=== PATIENT | male | born 1970 | race Two or more races ===

== ENCOUNTER 2024-04-22 16:32 | Emergency (ER) | payer MEDICAID, SELFPAY ==
[2024-04-22 16:38] VITALS: BP 156/83; PULSE 73; RESP 19; TEMP 36.6; O2SAT 99; BMI 27.3
--- NOTE | 2024-04-22 18:32 | XR_ITS ---
Examination: Abdomen sonogram, Limited Date and time of exam: April 22, 2024 2018 hrs. Indications: Right upper abdominal pain beginning 4 days ago Technique: Real-time orellana scale transabdominal sonographic images of the upper abdomen obtained. Findings: Gallbladder sludge balls the largest 6 mm Gallbladder wall is irregular 0.3 cm Common bile duct 0.3 cm Pancreatic head 2.6 cm Liver 14 cm fatty liver Normal hepatopedal portal venous flow Patent IVC Impression: Gallbladder sludge balls versus polyps Negative for cholelithiasis, negative for cholecystitis
--- NOTE | 2024-04-22 18:34 | PD.EDRME ---
Rapid Medical Screening Exam [facility] Arrival date/time: 04/22/24 16:32 54M with no significant PMH presents to ED with 4 days of RUQ pain, not leg pain as said in triage. Chief Complaint: Extremity Injury, Lower Vital signs: Vital Signs Temperature 97.8 F 04/22/24 16:38 Pulse Rate 73 04/22/24 16:38 Respiratory Rate 19 04/22/24 16:38 Blood Pressure 156/83 H 04/22/24 16:38 Pulse Oximetry (%) 99 04/22/24 16:38 Oxygen Delivery Method Room Air 04/22/24 16:38
[2024-04-22 18:51] LABS: Basophils # (Auto) 0.1 Thou/mm3 (0.0-0.2); Basophils % (Auto) 1 % (0-2.5); Eosinophils # (Auto) 1.1 Thou/mm3 (0.0-0.5); Eosinophils % (Auto) 18 % (0-10); Hematocrit 39.5 % (41.0-53.0); Hemoglobin 13.7 g/dL (13.5-16.0); Immature Granulocytes % (Auto) 0 % (0-0); Immature Granulocytes Auto 0.01 Thou/mm3 (0.00-0.00); Lymphocytes # (Auto) 1.8 Thou/mm3 (1.0-4.8); Lymphocytes % (Auto) 30 % (10-50); Mean Corpuscular HGB Conc 34.7 g/dl (31.0-37.0); Mean Corpuscular Hemoglobin 30.2 pg (25.0-35.0); Mean Corpuscular Volume 87 fL (80-100); Monocytes # (Auto) 0.4 Thou/mm3 (0.0-0.8); Monocytes % (Auto) 6 % (0-12); Neutrophils # (Auto) 2.8 Thou/mm3 (1.8-7.7); Neutrophils % (Auto) 46 % (37-80); Nucleated Red Blood Cell % 0 /100 WBC (0); Platelet Count 202 Thou/mm3 (140-440); RDW Standard Deviation 38.5 fL (35.1-43.9); Red Blood Count 4.54 Miln/mm3 (4.50-5.90); White Blood Count 6.1 Thou/mm3 (3.8-10.6)
[2024-04-22 19:05] LABS: Alanine Aminotransferase 16 U/L (10-49); Albumin, Serum 4.6 gm/dL (3.5-5.0); Albumin/Globulin Ratio 1.6 (1.2-2.2); Alkaline Phosphatase 100 U/L (46-116); Anion Gap 4 (7-16); Aspartate Amino Transferase 13 U/L (0-34); BUN/Creatinine Ratio 20 Ratio (12-20); Bilirubin,Total 0.6 mg/dL (0.3-1.2); Blood Urea Nitrogen 18 mg/dL (9-23); Calcium 9.7 mg/dL (8.3-10.6); Calcium (Corrected) 9.7 mg/dL (8.5-10.1); Carbon Dioxide 27.6 mMol/L (20.0-31.0); Chloride 103 mMol/L (98-107); Creatinine (Component) 0.9 mg/dL (0.6-1.3); Estimated Creatinine Clearance 88.7 mL/min (>60); Globulin 2.8 gm/dL (2.3-3.5); Glucose 279 mg/dL (74-106); Lipase 29 U/L (12-53); Osmolality,Calculated 282 (275-295); Potassium 4.8 mMol/L (3.4-5.1); Sodium 135 mMol/L (136-145); Total Protein 7.4 gm/dL (5.7-8.2); eGFR > 60 See Note
[2024-04-22] MEDS: HYDROcodone/APAP 5/325 TABLET 1 TAB PO (19:37)
[2024-04-22 20:05] LABS: Collection Type, Urine Clean Catch; RBC,Urine 0 /hpf (0-3); WBC,Urine 0 /hpf (0-5)
[2024-04-22 20:31] LABS: Bilirubin,Urine Negative (Negative); Blood,Urine Negative (Negative); Clarity,Urine Clear (Clear/Hazy); Color,Urine Lt-Yellow (Lt Yel-Yel); Culture Indicated,Urine Not Indicated; Glucose, Urine 4+ (Negative); Ketones,Urine Negative (Negative); Leukocyte Esterase,Urine Negative (Negative); Nitrite,Urine Negative (Negative); Protein,Urine Negative (Neg - Trace); Specific Gravity,Urine 1.034 (1.001-1.035); Squamous Epithelial Cell,Urine < 1 /hpf (0-5); Urobilinogen,Urine Negative mg/dL (0.0-1.0)
[2024-04-22 20:40] LABS: Amphetamine/Methamp Scrn,U Negative (Negative); Barbiturate Screen,Urine Negative (Negative); Benzodiazepines Screen,Urine Negative (Negative); Benzoylecgonine Screen, Ur Negative (Negative); Fentanyl Screen,Urine Negative (Negative); Opiate Screen,Urine Negative (Negative); THC Screen,Urine Negative (Negative)
[2024-04-22 23:09] VITALS: BP 149/84; PULSE 66; RESP 16; TEMP 36.5; O2SAT 97
--- NOTE | 2024-04-22 23:55 | PD.EDLOWEX ---
Lower Extremity Injury RME/HPI General Chief Complaint: Extremity Injury, Lower Stated Complaint: RIGHT LEG PAIN X4 DAYS Time Seen by Provider: 04/22/24 18:36 Arrival date/time: 04/22/24 16:32 Limitations: no limitations RME / HPI RME / HPI Narrative: 04/22/24 16:32 54M with no significant PMH presents to ED with 4 days of RUQ pain, not leg pain as said in triage. ---- Dr. Hurley's Main ED Evaluation: 54-year-old male with no significant past medical history coming in with intermittent right upper quadrant pain with radiation to his right back. x 4 days. The pain is intermittent and he cannot tell what makes it better or worse. He states he ate this morning but then the pain came back. No shortness of breath. No diaphoresis. Patient has not taken any medications for it. Patient does not recall having similar symptoms in the past. Patient states that the last few days when he eats Munuza and/or beef stew. He will get the pain. When he does not eat that type of food it makes it better. No nausea vomiting or diarrhea. No fevers. Patient otherwise denies sick contacts. No cough. Related Data Previous Rx's ?Medication ?Instructions ?Recorded hydrocodone 5 mg-acetaminophen 325 1 tab PO Q6H PRN pain #10 tabs 11/21/17 mg tablet (Minco) ibuprofen 600 mg tablet 600 mg PO Q6H #60 tabs 11/21/17 magnesium citrate (Citroma oral 150 ml PO QDAY #296 mL 06/29/21 solution) ciprofloxacin HCl 500 mg tablet 500 mg PO BID #14 tabs 08/02/23 (Cipro) doxycycline monohydrate 100 mg 100 mg PO QDAY #14 caps 12/10/23 capsule Allergies Allergy/AdvReac Type Severity Reaction Status Date / Time No Known Allergies Allergy Unverified 04/22/24 16:35 Review of Systems Review of Systems Systems Reviewed: All systems reviewed, normal except as documented Past Medical History Past Medical History CARDIAC: Positive Hypertension; Negative Cardiac Disorders or Congestive Heart Failure RESPIRATORY: Negative Chronic Obstructive Pulmonary Disease (COPD) or Asthma GENITOURINARY: Negative Renal Disease ENDOCRINE: Positive Diabetes Mellitus Type 2; Negative Diabetes Mellitus Type 1 HEMATOLOGIC: Negative Sickle Cell Disease Social History SMOKING STATUS: Never smoker ED Exam General Limitations: Present no limitations General appearance: Present alert and in no apparent distress Head Head exam: Present atraumatic Eye Eye exam: Present normal appearance, PERRL and EOMI ENT ENT exam: Present normal exam, normal oropharynx and mucous membranes moist Neck Neck exam: Present normal inspection, full ROM and trachea midline Chest Chest inspection: Present normal inspection and symmetric chest wall rise Respiratory Respiratory exam: Present normal lung sounds bilaterally Cardiovascular Cardiovascular exam: Present regular rate, normal rhythm and normal heart sounds Abdominal Exam Abdominal exam: Present soft and normal bowel sounds Extremities Exam Extremities exam: Present normal inspection and full ROM Back Exam Back exam: Present normal inspection and full ROM Neurological Exam Neurological exam: Present alert, oriented X3 and CN II-XII intact Psychiatric Psychiatric exam: Present normal affect and normal mood Skin Skin exam: Present warm, dry, intact and normal color Course Quality Measures none Orders Category Date Time Status US gall bladder Stat Exams 04/22/24 18:32 Completed CBC Stat Lab 04/22/24 18:41 Completed CMP [Comprehensive Metabolic Panel] Stat Lab 04/22/24 18:41 Completed Drug Screen,Urine Stat Lab 04/22/24 19:57 Completed Lipase Stat Lab 04/22/24 18:41 Completed Urinalysis, C/S if Indicated Stat Lab 04/22/24 19:57 Completed HYDROcodone*/APAP 5/325 [Minco 5/325] Med 04/22/24 19:06 Discontinued 1 tab PO X1 ONE HYDROcodone*/APAP 5/325 [Minco 5/325] Med 04/23/24 00:02 Discontinued 1 tab PO X1 ONE Vital Signs Vital signs: Vital Signs Temperature 97.8 F 04/22/24 16:38 Pulse Rate 73 04/22/24 16:38 Respiratory Rate 19 04/22/24 16:38 Blood Pressure 156/83 H 04/22/24 16:38 Pulse Oximetry (%) 99 04/22/24 16:38 Oxygen Delivery Method Room Air 04/22/24 16:38 Pulse ox is 99% on room air, which is normal according to my interpretation. Extremity Injury, Lower MDM Narrative MDM Narrative:: Differential diagnosis includes gallbladder disease, sludge, acute cholecystitis, Patient data External records reviewed:: [facility] previous records (Per chart review, patient was seen here on 12/09/22 for epididymitis.) Clinical information provided by:: patient Social determinants that could affect healthcare access:: none Patient has the following chronic illnesses:: HTN, DM How is presenting disease/condition affected by chronic disease/condition?: uneffected by Evaluation data The following diagnostics were reviewed and interpreted by me:: lab results and radiology exam(s) Lab and/or radiology exams considered but not ordered:: none Interpretation Summary: CBC is normal, Glucose is elevated at 279, LFTs are normal, Total Bilirubin is normal, UA is unremarkable, UDS is negative, according to my interpretation. ---- I have personally reviewed the radiology data and agree with the radiologist's interpretation below: [facility] Report Signed Patient: AZALE ZARCO. Record#: [id number] Birthdate: 1970 Age/Sex: 54 / M Location: [facility] Attending Dr: Ordering Physician: Kunal Grey PA-C Date of Service: 04/22/24 Procedure(s): US gall bladder Accession Number(s): [id number] cc: Jan Case PA-C; Shlomo Mahoney MD; Kunal Grey PA-C~ Examination: Abdomen sonogram, Limited Date and time of exam: April 22, 2024 2018 hrs. Indications: Right upper abdominal pain beginning 4 days ago Technique: Real-time orellana scale transabdominal sonographic images of the upper abdomen obtained. Findings: Gallbladder sludge balls the largest 6 mm Gallbladder wall is irregular 0.3 cm Common bile duct 0.3 cm Pancreatic head 2.6 cm Liver 14 cm fatty liver Normal hepatopedal portal venous flow Patent IVC Impression: Gallbladder sludge balls versus polyps Negative for cholelithiasis, negative for cholecystitis Dictated By: Shlomo Mahoney MD Signed By: <Electronically signed by Shlomo Mahoney MD in OV> 04/22/24 4636 Medications / Prescriptions Medications or Prescriptions considered but not ordered:: none Medication administrations:: Medication Administration History Discontinued Medications Hydrocodone Bitart/Acetaminophen (Hydrocodone/Apap 5/325 Tablet) 1 tab PO X1 ONE Stop: 04/22/24 19:07 Last Admin: 04/22/24 19:37 Dose: 1 tab Documented By: Hydrocodone Bitart/Acetaminophen (Hydrocodone/Apap 5/325 Tablet) 1 tab PO X1 ONE Stop: 04/23/24 00:03 Last Admin: 04/23/24 00:12 Dose: 1 tab Documented By: SF see above Consultations Consultation(s) initiated? (list below): No Diagnosis Extremity Injury, Lower Differential Diagnosis: other (gallbladder disease, gallbladder sludge, acute cholecystitis) Most likely diagnosis given after review of the tests above:: see bwlo Admission Indicated Admission indicated?: not indicated Admission Request Was there a request for admission?: No Disposition Plan Disposition Plan: Discharge Discharge Attestation Discharge Attestation: The patient and all family members were given an opportunity to ask questions and understood the discharge instructions. Discharge instructions specifically effects, indications for sooner follow up or return to the emergency department, and the expected course of current diagnosis. Patient condition: Stable Discharge Plan Plan Patient Disposition: Admit Acute Care w/in Hospital Patient condition on transfer: Stable Prescriptions/Referrals Prescriptions/Med Rec: No Action hydrocodone-acetaminophen [Minco] 5-325 mg tablet 1 tab PO Q6H MDD 4 tabs PRN (Reason: pain) Qty: 10 0RF ibuprofen 600 mg tablet 600 mg PO Q6H Qty: 60 0RF magnesium citrate [Citroma] Solution 150 ml PO QDAY Qty: 296 0RF ciprofloxacin HCl [Cipro] 500 mg tablet 500 mg PO BID Qty: 14 0RF doxycycline monohydrate 100 mg capsule 100 mg PO QDAY Qty: 14 0RF Referrals: Katerina Hammond MD [Physician] - In 1 week (Follow-up with your primary care so you get a referral with Dr. Hammond.) Jan Case PA-C [Primary Care Provider] - In 1 week Problem List Clinical Impression: Gallbladder sludge Patient/Caregiver Discharge Instructions Diet Instructions: Stay hydrated with Pedialyte and Gatorade. Stay away from greasy or fatty foods. Additional Instructions: Return to the emergency department for any worsening symptoms or any other concerns. You will need to get follow-up with your primary care physician to get a referral to see surgery. Print Language: Omani Stand Alone Forms: Sussy Award Info., Patient Portal Info Letter
[2024-04-23] MEDS: HYDROcodone/APAP 5/325 TABLET 1 TAB PO (00:12)
== END 2024-04-23 00:18 | disposition home or self-care (01) ==
PROVIDERS: Physician Assistant; Emergency Provider Emergency Medicine; PCP Physician Assistant
DX: K82.8 Other specified diseases of gallbladder (principal)
CPT/HCPCS: 36415; 76705; 80053; 80307; 81001; 83690; 85025; 99284; A9270

== ENCOUNTER 2024-05-01 10:40 | Day surgery (SDC) | payer MEDICAID, SELFPAY ==
--- NOTE | 2024-04-30 07:00 | EKG_ITS ---
[facility] Test Date: 2024-04-30 Pat Name: AZAEL ZARCO Department: Room: - Gender: Male [employer] G[employer]r: TAM : 1970 Requested By: Jim Muñoz Order Number: [id number] Reading MD: Jim Muñoz Measurements Intervals [place] Rate: 61 P: 23 DC: 191 QRS: 25 QRSD: 90 T: 44 QT: 383 QTc: 388 Interpretive Statements SINUS RHYTHM No previous ECG available for comparison /store/S0/[id number]/ecg/[id number].pdf
[2024-04-30 07:17] VITALS: BMI 31.0
[2024-04-30 07:43] LABS: Collection Type, Urine Clean Catch
[2024-04-30 08:15] LABS: Basophils # (Auto) 0.1 Thou/mm3 (0.0-0.2); Basophils % (Auto) 1 % (0-2.5); Eosinophils # (Auto) 1.1 Thou/mm3 (0.0-0.5); Eosinophils % (Auto) 23 % (0-10); Hematocrit 38.1 % (41.0-53.0); Hemoglobin 13.2 g/dL (13.5-16.0); Immature Granulocytes % (Auto) 0 % (0-0); Immature Granulocytes Auto 0.01 Thou/mm3 (0.00-0.00); Lymphocytes # (Auto) 1.5 Thou/mm3 (1.0-4.8); Lymphocytes % (Auto) 31 % (10-50); Mean Corpuscular HGB Conc 34.6 g/dl (31.0-37.0); Mean Corpuscular Hemoglobin 30.2 pg (25.0-35.0); Mean Corpuscular Volume 87 fL (80-100); Monocytes # (Auto) 0.4 Thou/mm3 (0.0-0.8); Monocytes % (Auto) 8 % (0-12); Neutrophils # (Auto) 1.8 Thou/mm3 (1.8-7.7); Neutrophils % (Auto) 37 % (37-80); Nucleated Red Blood Cell % 0 /100 WBC (0); Platelet Count 214 Thou/mm3 (140-440); RDW Standard Deviation 38.9 fL (35.1-43.9); Red Blood Count 4.37 Miln/mm3 (4.50-5.90); White Blood Count 4.9 Thou/mm3 (3.8-10.6)
[2024-04-30 08:16] LABS: Bilirubin,Urine Negative (Negative); Blood,Urine Negative (Negative); Clarity,Urine Clear (Clear/Hazy); Color,Urine Lt-Yellow (Lt Yel-Yel); Glucose, Urine 1+ (Negative); Ketones,Urine Negative (Negative); Leukocyte Esterase,Urine Negative (Negative); Nitrite,Urine Negative (Negative); Protein,Urine Negative (Neg - Trace); RBC,Urine 2 /hpf (0-3); Specific Gravity,Urine 1.015 (1.001-1.035); Squamous Epithelial Cell,Urine < 1 /hpf (0-5); Urobilinogen,Urine Negative mg/dL (0.0-1.0); WBC,Urine 1 /hpf (0-5)
[2024-04-30 08:29] LABS: Alanine Aminotransferase 13 U/L (10-49); Albumin, Serum 4.4 gm/dL (3.5-5.0); Albumin/Globulin Ratio 1.8 (1.2-2.2); Alkaline Phosphatase 66 U/L (46-116); Anion Gap 4 (7-16); Aspartate Amino Transferase 12 U/L (0-34); BUN/Creatinine Ratio 21 Ratio (12-20); Bilirubin,Total 0.6 mg/dL (0.3-1.2); Blood Urea Nitrogen 17 mg/dL (9-23); Calcium 9.5 mg/dL (8.3-10.6); Calcium (Corrected) 9.5 mg/dL (8.5-10.1); Carbon Dioxide 26.4 mMol/L (20.0-31.0); Chloride 107 mMol/L (98-107); Creatinine (Component) 0.8 mg/dL (0.6-1.3); Estimated Creatinine Clearance 110.2 mL/min (>60); Globulin 2.5 gm/dL (2.3-3.5); Glucose 141 mg/dL (74-106); Osmolality,Calculated 277 (275-295); Potassium 4.6 mMol/L (3.4-5.1); Sodium 137 mMol/L (136-145); Total Protein 6.9 gm/dL (5.7-8.2); eGFR > 60 See Note
--- NOTE | 2024-04-30 11:48 | ESHP_ITS ---
RE: AZAEL OCHOA : 1970 DATE OF ADMISSION: 04/30/2024 HISTORY OF PRESENT ILLNESS: A 54-year-old gentleman who was referred to me with history of phimosis. He has been urinating slow and hard to urinate. He had eye surgery in the past. His PSA is 0.5. PAST MEDICAL HISTORY: He has a history of diabetes mellitus. MEDICATIONS: He takes: 1. Insulin. 2. Lisinopril. 3. Keflex. 4. Doxazosin. ALLERGIES: NONE KNOWN. SOCIAL HISTORY: He has 6 children. PHYSICAL EXAMINATION: HEENT: Normal. NECK: Supple. LUNGS: Clear. CARDIOVASCULAR: Heart sounds are normal. ABDOMEN: Soft without any organomegaly. No guarding. No rigidity. EXTREMITIES: Normal. GENITOURINARY: Phallus reveals moderate phimosis. Testes are down in scrotum. IMPRESSION: Phimosis. PLAN: Circumcision. Planned procedure, risks and complications have been discussed with the patient. The patient has understood them and agreed to proceed. DT: 10:49:50 TT: 11:47:00 Ref: [id number] - TID: [id number]
[2024-05-01] VITALS (8 sets, daily range): BP systolic 95–147; BP diastolic 60–84; PULSE 64–84; RESP 12–18; TEMP 36.2–36.5; O2SAT 95–98; BMI 30.2
--- NOTE | 2024-05-01 12:56 | SUR.PHASEI ---
pt received from OR in recovery bay 6. pt asleep but responds to voice, breathing unlabored nc 6l. v/s stable. pt dressing to penis area cdi. report received from Mp MAGALLON and Korey BURGER.
--- NOTE | 2024-05-01 14:11 | SUR.PHASEII ---
pt awake and alert, breathing unlabored on room air. v/s stable. pt dressing to penis area cdi. pt able to ambulate to wheelchair with steady gait. d/c instructions given with in room, using change management consultant Nayeli ALLEN, all questions answered. pt d/c via wheelchair with all belongings.
--- NOTE | 2024-05-01 15:58 | ESOP_ITS ---
RE: AZAEL OCHOA : 1970 DATE OF OPERATION: 05/01/2024 PREOPERATIVE DIAGNOSIS: Tight phimosis. The patient has history of diabetes mellitus. POSTOPERATIVE DIAGNOSIS: Tight phimosis, the patient has history of diabetes mellitus. PROCEDURE PERFORMED: Circumcision. ANESTHESIA: General. INDICATION: The patient is a 54-year-old male with tight phimosis. He was now scheduled to have circumcision. Planned procedure, risks and complications have been discussed with the patient. The patient understood them and agreed to proceed. DESCRIPTION OF PROCEDURE: After the patient was brought to the operating table under adequate general anesthesia in supine position, parts were prepped and draped in the usual fashion. Circumcision was then carried out in a standard fashion by excising the foreskin in the circumferential manner at the level of calloway glandis. Complete hemostasis was obtained by using electrocoagulation. Skin was reapproximated back by placing interrupted sutures of 3-0 chromic catgut. Sterile dressing was then applied. Local anesthetic was injected at the base of the penis. The patient was then transferred to the recovery room in a satisfactory condition, having tolerated the entire procedure well. Sponge count and needle count at the end of the procedure was found to be correct. Estimated blood loss was approximately 5 mL. DT: 14:18:53 TT: 15:56:00 Ref: [id number] - TID: [id number]
== END 2024-05-01 14:11 | disposition home or self-care (01) ==
LOC: S2EX 14:31
PROVIDERS: Anesthesiology; PCP Physician Assistant; Referring Provider Surgery; Visit Provider Surgery
PROC: (CPT 54161; principal; 2024-05-01 12:45)
DX: N47.1 Phimosis (principal); E11.9 Type 2 diabetes mellitus without complications; Z01.810 Encounter for preprocedural cardiovascular examination
CPT/HCPCS: 54161; 36415; 80053; 81001; 85025; 93005; A4649; J0690; J2250; J2704; J3010; J3490; A9270; J1596

== ENCOUNTER 2024-07-02 17:01 | Emergency (ER) | payer MEDICAID, SELFPAY ==
[2024-07-02 17:32] VITALS: BP 134/79; PULSE 92; RESP 20; TEMP 37.1; O2SAT 95
--- NOTE | 2024-07-02 17:34 | XR_ITS ---
Examination: PA lateral chest 2 views TECHNIQUE: Upright PA lateral chest 2 views Exam date and time: July 02, 2024 1803 hours Comparison November 21, 2017 INDICATIONS: Coughing fever headache weakness chest pain beginning 2 days ago. FINDINGS: Minimal prominence left ventricle No pneumonia or pulmonary edema Moderate thoracic spondylosis IMPRESSION: No pneumonia or pulmonary edema
--- NOTE | 2024-07-02 17:34 | PD.EDRME ---
Rapid Medical Screening Exam [facility] Arrival date/time: 07/02/24 17:01 54-year-old male presents to the emergency department today complaints of cough, congestion, body aches ongoing x 1 day Chief Complaint: Flu Like Symptoms Time Seen by Provider: 07/02/24 17:32 Vital signs: Vital Signs Temperature 98.8 F 07/02/24 17:32 Pulse Rate 92 07/02/24 17:32 Respiratory Rate 20 07/02/24 17:32 Blood Pressure 134/79 H 07/02/24 17:32 Pulse Oximetry (%) 95 07/02/24 17:32 Oxygen Delivery Method Room Air 07/02/24 17:32
--- NOTE | 2024-07-02 18:53 | PD.EDURI ---
Upper Respiratory Inf. RME/HPI General Chief Complaint: Flu Like Symptoms Stated Complaint: FEVER, COUGH, [place], WEAKNESS, CHEST PAIN Time Seen by Provider: 07/02/24 17:32 Source: patient and family Arrival date/time: 07/02/24 17:01 54-year-old male presents emerged see department complaining of fever, cough, headache, generalized bodyaches, weakness and chest pain when coughing for 3 days. Patient reports sick contacts daughters at home have similar symptoms. Mode of arrival: ambulatory Limitations: no limitations RME / HPI RME / HPI Narrative: 07/02/24 17:01 54-year-old male presents to the emergency department today complaints of cough, congestion, body aches ongoing x 1 day Related Data Home Medications ?Medication ?Instructions ?Recorded ?Confirmed finasteride 5 mg tablet 5 mg PO QDAY 04/30/24 04/30/24 insulin glargine 100 unit/mL 25 unit subcut QPM 04/30/24 04/30/24 subcutaneous solution (Lantus U-100 Insulin) lisinopril 10 mg tablet 10 mg PO QDAY 04/30/24 05/01/24 tamsulosin 0.4 mg capsule 0.4 mg PO BID 04/30/24 04/30/24 Previous Rx's ?Medication ?Instructions ?Recorded ciprofloxacin HCl 500 mg tablet 500 mg PO BID #14 tabs 05/01/24 (Cipro) hydrocodone 5 mg-acetaminophen 325 1 tab PO Q6H PRN pain #30 tabs 05/01/24 mg tablet acetaminophen 500 mg capsule 500 mg PO Q6H PRN pain #30 caps 07/02/24 ibuprofen 600 mg tablet 600 mg PO Q8H PRN pain #20 tabs 07/02/24 Allergies Allergy/AdvReac Type Severity Reaction Status Date / Time No Known Allergies Allergy Verified 05/01/24 11:27 Review of Systems Review of Systems Systems Reviewed: All systems reviewed, normal except as documented Constitutional Constitutional: Reports system reviewed and no additional complaints, except as documented, Reports body ache(s), Denies chills, Reports fever(s), Reports headache(s) and Reports weakness Eyes Eyes: Reports system reviewed and no additional complaints, except as documented and Denies change in vision ENT Ears, Nose, Mouth, and Throat: Reports system reviewed and no additional complaints, except as documented, Denies disequilibrium, Denies dizziness, Reports headache(s), Denies sore throat and Denies vertigo Cardiovascular Cardiovascular: Reports system reviewed and no additional complaints, except as documented, Reports chest pain and Denies dyspnea Respiratory Respiratory: Reports system reviewed and no additional complaints, except as documented, Denies chest congestion, Reports cough and Denies dyspnea Gastrointestinal Gastrointestinal: Reports system reviewed and no additional complaints, except as documented, Denies abdominal pain, Denies nausea and Denies vomiting Musculoskeletal Musculoskeletal: Reports system reviewed and no additional complaints, except as documented, Denies abnormal gait and Denies arthralgias Integumentary/Breasts Skin/Breast: Reports system reviewed and no additional complaints, except as documented, Denies erythema, Denies rash and Denies wounds Neurologic Neurologic: Reports system reviewed and no additional complaints, except as documented, Denies abnormal gait, Denies disequilibrium, Denies dizziness, Reports headache(s), Denies vertigo and Reports weakness Past Medical History Past Medical History NEUROLOGIC: Negative Neurological Disorders or Seizures CARDIAC: Positive Cardiac Disorders, Hypercholesterolemia (NO MEDS) and Hypertension; Negative Congestive Heart Failure RESPIRATORY: Negative Chronic Obstructive Pulmonary Disease (COPD) or Asthma GASTROINTESTINAL: Positive Gastrointestinal Disorders, Hepatitis (A- SEVERAL YEARS AGO) and Gall Bladder Disease GENITOURINARY: Positive Genitourinary Disorders and Benign Prostatic Hyperplasia; Negative Renal Disease MUSCULOSKELETAL: Negative Musculoskeletal Disorders ENDOCRINE: Positive Endocrine Disorders and Diabetes Mellitus Type 2; Negative Diabetes Mellitus Type 1 HEMATOLOGIC: Negative Blood Disorders or Sickle Cell Disease OTHER HISTORY: Positive Chicken Pox; Negative Falls, Blood Transfusions, Blood Transfusion Reaction, Anesthesia Reactions, Chemotherapy, Measles, Mumps or Cancer Family History FAMILY HISTORY: Positive Family Cardiac Disorders (MOTHER- HTN); Negative Family Anesthesia Reaction Surgical History SURGICAL: Positive Eye Surgery (RIGHTEYE- PTYREGIUM) Social History SMOKING STATUS: Never smoker ED Exam General Limitations: Present no limitations General appearance: Present alert and in no apparent distress Head Head exam: Present atraumatic Eye Eye exam: Present normal appearance, PERRL and EOMI ENT ENT exam: Present normal exam, normal oropharynx and mucous membranes moist Neck Neck exam: Present normal inspection, full ROM and trachea midline Chest Chest inspection: Present normal inspection and symmetric chest wall rise Respiratory Respiratory exam: Present normal lung sounds bilaterally Cardiovascular Cardiovascular exam: Present regular rate, normal rhythm and normal heart sounds Abdominal Exam Abdominal exam: Present soft and normal bowel sounds Extremities Exam Extremities exam: Present normal inspection and full ROM Back Exam Back exam: Present normal inspection and full ROM Neurological Exam Neurological exam: Present alert, oriented X3 and CN II-XII intact Psychiatric Psychiatric exam: Present normal affect and normal mood Skin Skin exam: Present warm, dry, intact and normal color Course Quality Measures none Orders Category Date Time Status Bedside Influenza A&B Antigen Test NOW Care 07/02/24 17:34 Completed XR chest 2V Stat Exams 07/02/24 17:34 Completed Ketorolac Inj [Toradol Inj] Med 07/02/24 18:56 Once 30 mg IM X1 ONE Vital Signs Vital signs: Vital Signs Temperature 98.8 F 07/02/24 17:32 Pulse Rate 92 07/02/24 17:32 Respiratory Rate 20 07/02/24 17:32 Blood Pressure 134/79 H 07/02/24 17:32 Pulse Oximetry (%) 95 07/02/24 17:32 Oxygen Delivery Method Room Air 07/02/24 17:32 95% room air within normal limits Upper Respiratory Infection MDM Narrative MDM Narrative:: 54-year-old male presents emerged see department complaining of fever, cough, headache, generalized bodyaches, weakness and chest pain when coughing for 3 days. Patient reports sick contacts daughters at home have similar symptoms. Patient appears nontoxic and is hemodynamic stable. No adventitious lung sounds on auscultation. Chest x-ray was unremarkable for any pneumonic infiltrates. Patient has moist mucous membranes and not appear to be in any respiratory distress. Influenza positive. Tamiflu treatment was not considered due to patient having symptoms greater than 48 hours. Patient stable for discharge. Patient data External records reviewed:: [facility] previous records Clinical information provided by:: patient Social determinants that could affect healthcare access:: none Patient has the following chronic illnesses:: See chart How is presenting disease/condition affected by chronic disease/condition?: uneffected by Evaluation data The following diagnostics were reviewed and interpreted by me:: radiology exam(s) Lab and/or radiology exams considered but not ordered:: Ordered Interpretation Summary: Interpreted by me Medications / Prescriptions Medications or Prescriptions considered but not ordered:: Ordered Medication administrations:: Medication Administration History Discontinued Medications Ketorolac Tromethamine (Ketorolac Inj 60 Mg/2 Ml Vial) 30 mg IM X1 ONE Stop: 07/02/24 18:57 Given Consultations Consultation(s) initiated? (list below): No Diagnosis Upper Respiratory Differential Diagnosis: upper respiratory infection, otitis media, sinusitis, viral infection, bronchitis, influenza and pharyngitis Most likely diagnosis given after review of the tests above:: Influenza Admission Indicated Admission indicated?: not indicated Admission Request Was there a request for admission?: No Disposition Plan Disposition Plan: Discharge Discharge Attestation Discharge Attestation: The patient and all family members were given an opportunity to ask questions and understood the discharge instructions. Discharge instructions specifically effects, indications for sooner follow up or return to the emergency department, and the expected course of current diagnosis. Patient condition: Stable Discharge Plan Plan Patient Disposition: HOME (Self Care) Disposition Comment: Stable Prescriptions/Referrals Prescriptions/Med Rec: New acetaminophen 500 mg capsule 500 mg PO Q6H PRN (Reason: pain) Qty: 30 0RF ibuprofen 600 mg tablet 600 mg PO Q8H PRN (Reason: pain) Qty: 20 0RF No Action insulin glargine [Lantus U-100 Insulin] 100 unit/mL Solution 25 unit SUBCUT QPM tamsulosin 0.4 mg Capsule 0.4 mg PO BID lisinopril 10 mg Tablet 10 mg PO QDAY finasteride 5 mg Tablet 5 mg PO QDAY hydrocodone-acetaminophen 5-325 mg tablet 1 tab PO Q6H MDD 4 PRN (Reason: pain) Qty: 30 0RF ciprofloxacin HCl [Cipro] 500 mg tablet 500 mg PO BID Qty: 14 0RF Referrals: Travis Palacios FNP [Primary Care Provider] - In 1 week Problem List Clinical Impression: Influenza Patient/Caregiver Discharge Instructions Education Materials: ED Influenza (Adult) Additional Instructions: Drink plenty of fluids and get plenty of rest. Take Tylenol or ibuprofen as needed for fever or pain. Follow-up with primary care provider in 2 to 3 days. Return to emergency department for any worsening symptoms or as needed. Print Language: Senegalese Stand Alone Forms: Sussy Award Info., Patient Portal Info Letter SEE/TAPPET ADJUSTER Supervising Physician SEE/TAPPET ADJUSTER Supervising Physician: Dr. Arvizu
[2024-07-02] MEDS: KETOROLAC INJ 60 MG/2 ML VIAL 30 MG IM (19:16)
== END 2024-07-02 19:25 | disposition home or self-care (01) ==
PROVIDERS: Emergency Provider Emergency Medicine; PCP Nurse Practitioner Family
DX: J11.1 Influenza due to unidentified influenza virus with other respiratory manifestations (principal)
CPT/HCPCS: 71046; 87400; 96372; 99283; J1885

== ENCOUNTER 2024-10-28 11:52 | Emergency (ER) | payer MEDICAID, SELFPAY ==
[2024-10-28 11:52] VITALS: BMI 28.8
[2024-10-28 12:05] VITALS: BP 146/83; PULSE 74; RESP 16; TEMP 36.4; O2SAT 99
--- NOTE | 2024-10-28 12:10 | PD.EDADULT ---
ED General RME/HPI General Chief complaint: Abdominal Pain Stated complaint: RUQ PAIN X4 DAYS Time Seen by Provider: 10/28/24 11:54 Arrival date/time: 10/28/24 11:52 Limitations: no limitations RME / HPI RME / HPI narrative: DR. RED MAIN ED EVALUATION: 54 year old male with past medical history for diabetes presents to the Emergency Department with complaints of right upper quadrant pain that radiates to the right flank onset intermittently for 4-5 days, today's episode has been going on for an hour. Pain is described as stabbing and rated moderate in severity. No modifying factors reported at this time. Patient had similar symptoms in the past 3-4 months ago and was told he had sand in his gallbladder. No fevers or chills. Related Data Home Medications ?Medication ?Instructions ?Recorded ?Confirmed finasteride 5 mg tablet 5 mg PO QDAY 04/30/24 04/30/24 insulin glargine 100 unit/mL 25 unit subcut QPM 04/30/24 04/30/24 subcutaneous solution (Lantus U-100 Insulin) lisinopril 10 mg tablet 10 mg PO QDAY 04/30/24 05/01/24 tamsulosin 0.4 mg capsule 0.4 mg PO BID 04/30/24 04/30/24 Previous Rx's ?Medication ?Instructions ?Recorded ciprofloxacin HCl 500 mg tablet 500 mg PO BID #14 tabs 05/01/24 (Cipro) hydrocodone 5 mg-acetaminophen 325 1 tab PO Q6H PRN pain #30 tabs 05/01/24 mg tablet acetaminophen 500 mg capsule 500 mg PO Q6H PRN pain #30 caps 07/02/24 ibuprofen 600 mg tablet 600 mg PO Q8H PRN pain #20 tabs 07/02/24 Allergies Allergy/AdvReac Type Severity Reaction Status Date / Time No Known Allergies Allergy Verified 10/28/24 11:52 Review of Systems Review of Systems Systems Reviewed: All systems reviewed, normal except as documented Past Medical History Past Medical History CARDIAC: Positive Cardiac Disorders, Hypercholesterolemia (NO MEDS) and Hypertension GASTROINTESTINAL: Positive Gastrointestinal Disorders, Hepatitis (A- SEVERAL YEARS AGO) and Gall Bladder Disease GENITOURINARY: Positive Genitourinary Disorders and Benign Prostatic Hyperplasia ENDOCRINE: Positive Endocrine Disorders and Diabetes Mellitus Type 2 OTHER HISTORY: Positive Chicken Pox Family History FAMILY HISTORY: Positive Family Cardiac Disorders (MOTHER- HTN) Surgical History SURGICAL: Positive Eye Surgery (RIGHTEYE- PTYREGIUM) Social History SMOKING STATUS: Never smoker SUBSTANCE USE: does not use ALCOHOL: Never ED Exam General Limitations: Present no limitations General appearance: Present alert and in no apparent distress Head Head exam: Present atraumatic, normocephalic and normal inspection Eye Eye exam: Present normal appearance, PERRL and EOMI ENT ENT exam: Present normal exam, normal oropharynx and mucous membranes moist Neck Neck exam: Present normal inspection, full ROM and trachea midline Chest Chest inspection: Present normal inspection and symmetric chest wall rise Respiratory Respiratory exam: Present normal lung sounds bilaterally Cardiovascular Cardiovascular exam: Present regular rate, normal rhythm and normal heart sounds Abdominal Exam Abdominal exam: Present soft and normal bowel sounds Extremities Exam Extremities exam: Present normal inspection and full ROM Back Exam Back exam: Present normal inspection and full ROM Neurological Exam Neurological exam: Present alert, oriented X3 and CN II-XII intact Psychiatric Psychiatric exam: Present normal affect and normal mood Skin Skin exam: Present warm, dry, intact and normal color Course Quality Measures none Orders Category Date Time Status EKG (ED ONLY) *Do not use* NOW Care 10/28/24 12:[address] abdomen pelvis wo con Stat Exams 10/28/24 12:16 Completed EKG (ED Only) Stat Exams 10/28/24 12:16 Ordered CBC Stat Lab 10/28/24 12:50 Completed Comprehensive Metabolic Panel Stat Lab 10/28/24 12:50 Completed Lipase Stat Lab 10/28/24 12:50 Completed Magnesium Stat Lab 10/28/24 12:50 Completed Prothrombin Time with INR Stat Lab 10/28/24 12:50 Completed Urinalysis Stat Lab 10/28/24 12:21 Completed Ketorolac Inj [Toradol Inj] Med 10/28/24 12:16 Discontinued 15 mg IVP X1 ONE Ketorolac Inj [Toradol Inj] Med 10/28/24 12:35 Discontinued 30 mg IM X1 ONE Sodium Chloride 0.9% 500 ml [Ns] 500 ml Med 10/28/24 12:18 Discontinued IV 999 mls/hr Vital Signs Vital signs: Vital Signs Temperature 97.6 F 10/28/24 12:05 Pulse Rate 74 10/28/24 12:05 Respiratory Rate 16 10/28/24 12:05 Blood Pressure 146/83 H 10/28/24 12:05 Pulse Oximetry (%) 99 10/28/24 12:05 Oxygen Delivery Method Room Air 10/28/24 12:05 Discharge Plan Plan Patient Disposition: HOME (Self Care) Patient condition on transfer: Stable Prescriptions/Referrals Prescriptions/Med Rec: No Action insulin glargine [Lantus U-100 Insulin] 100 unit/mL Solution 25 unit SUBCUT QPM tamsulosin 0.4 mg Capsule 0.4 mg PO BID lisinopril 10 mg Tablet 10 mg PO QDAY finasteride 5 mg Tablet 5 mg PO QDAY hydrocodone-acetaminophen 5-325 mg tablet 1 tab PO Q6H MDD 4 PRN (Reason: pain) Qty: 30 0RF ciprofloxacin HCl [Cipro] 500 mg tablet 500 mg PO BID Qty: 14 0RF acetaminophen 500 mg capsule 500 mg PO Q6H PRN (Reason: pain) Qty: 30 0RF ibuprofen 600 mg tablet 600 mg PO Q8H PRN (Reason: pain) Qty: 20 0RF Referrals: Travis Palacios FNP [Primary Care Provider] - In 1 week Problem List Clinical Impression: Flank pain, Musculoskeletal pain Patient/Caregiver Discharge Instructions Education Materials: ED Flank Pain, Uncertain Cause, ED Myalgias Additional Instructions: Abdomen/pelvis CT showed significant thickening of the anterior urinary bladder wall with pericystic inflammatory change most consistent with prominent cystitis; patient should follow up in 2-3 days with PCP and consider an urology consult for these CT findings. Return to the Emergency Department as needed. La tomograf?a computarizada de abdomen y pelvis mostr? un engrosamiento significativo de la pared anterior de la vejiga urinaria con un cambio inflamatorio periqu?stico, compatible con sonali cistitis prominente. El paciente debe realizar un seguimiento en 2-3 d?as con PCP y considerar sonali consulta de urolog?a ante estos hallazgos. Regrese a Urgencias si es necesario. Print Language: Tajik Stand Alone Forms: Sussy Award Info., Work/School Release, Patient Portal Info Letter MDM Narrative MDM hospital course: I, Olive Walton, am scribing for and in the presence of Dr. Red. U/A negative. Blood glucose was 192, history of diabetes. Patient will be discharged with right flank pain and musculoskeletal pain. Abdomen/pelvis CT showed significant thickening of the anterior urinary bladder wall with pericystic inflammatory change most consistent with prominent cystitis; pateitn should follow up in 2-3 days with PCP and consider an urology consult for these CT findings. Clinical Information Provided by patient Medical Records Reviewed [facility] Meds/Rx Considered, not Ordered None Labs/Rad/Tests considered, not Ordered None Chronic Illness/Social Conditions Add or document further as needed: diabetes EKG Interpretation EKG #1: Date/time of EK10/28/24 1:15 pm EKG interpretation: sinus rhythm, rate 66, no acute changes, LA interval 173 ms, QRS duration 93 ms, QT/QTc 373/387, P-R-T axis 33, 11, and 55 Lab Interpretation Labs: see narrative above Imaging Imaging interpretation: see narrative above Radiology reports / interpretation(s): Procedure(s): CT abdomen pelvis wo con Accession Number(s): [id number] cc: Travis Palacios; Joesph Red MD; Shlomo Mahoney MD~ Examination: CT abdomen and pelvis without contrast. Coronal 3-D reconstructions. Sagittal 2-D reconstructions. Date and time of exam:October 28, 2024 1310 hrs. Comparison December 10, 2023 Indications: Onset right upper abdominal pain beginning 5 days ago CTDI: vol (mGy): 8.32 DLP: (mGycm): 475 Technique: Axial images of the abdomen have been obtained, 3 mm slice thickness Intravenous contrast material has not been administered. Low dose protocols were performed. One or more of the following dose reduction techniques were used; automated exposure control, adjustment of the mA and/or KV according to patient size, use of iterative reconstruction technique. Findings: No focal liver or splenic lesions No gallstones No pancreatic mass Minimal nodular thickening left adrenal gland Mild right moderate left renal parenchymal scar formation No renal or ureteral calculi, no hydronephrosis Minimal perinephric stranding Aorta normal size Normal appendix Abundant stool in the right colon No bowel obstruction No diverticulitis Urinary bladder wall thickening anteriorly up to 10 mm with pericystic inflammatory change Transverse prostate dimension 4 cm Impression: No gallstones depicted Negative for pancreatitis Minimal perinephric stranding, consider urinary tract infection Significant thickening of the anterior urinary bladder wall with pericystic inflammatory change most consistent with prominent cystitis Dictated By: Shlomo Mahoney MD Medication Administration(s) Medication Administration History Discontinued Medications Sodium Chloride (Ns) 500 mls @ 999 mls/hr IV .Q31M ONE Stop: 10/28/24 12:48 Last Admin: 10/28/24 12:57 Dose: Not Given Documented By: LF Non-Admin Reason: Discontinued Ketorolac Tromethamine (Ketorolac Inj 30 Mg/Ml Vial) 15 mg IVP X1 ONE Stop: 10/28/24 12:17 Last Admin: 10/28/24 12:57 Dose: Not Given Documented By: LF Non-Admin Reason: Discontinued Ketorolac Tromethamine (Ketorolac Inj 60 Mg/2 Ml Vial) 30 mg IM X1 ONE Stop: 10/28/24 12:36 Last Admin: 10/28/24 13:38 Dose: 30 mg Documented By: KF Diagnosis Differential diagnosis: kidney stone, UTI, abdominal pain Most likely dx, and/or detailed dx discussion: Right flank pain and musculoskeletal pain. Dispositon Disposition: Discharge Home
--- NOTE | 2024-10-28 12:16 | XR_ITS ---
Examination: CT abdomen and pelvis without contrast. Coronal 3-D reconstructions. Sagittal 2-D reconstructions. Date and time of exam:October 28, 2024 1310 hrs. Comparison December 10, 2023 Indications: Onset right upper abdominal pain beginning 5 days ago CTDI: vol (mGy): 8.32 DLP: (mGycm): 475 Technique: Axial images of the abdomen have been obtained, 3 mm slice thickness Intravenous contrast material has not been administered. Low dose protocols were performed. One or more of the following dose reduction techniques were used; automated exposure control, adjustment of the mA and/or KV according to patient size, use of iterative reconstruction technique. Findings: No focal liver or splenic lesions No gallstones No pancreatic mass Minimal nodular thickening left adrenal gland Mild right moderate left renal parenchymal scar formation No renal or ureteral calculi, no hydronephrosis Minimal perinephric stranding Aorta normal size Normal appendix Abundant stool in the right colon No bowel obstruction No diverticulitis Urinary bladder wall thickening anteriorly up to 10 mm with pericystic inflammatory change Transverse prostate dimension 4 cm Impression: No gallstones depicted Negative for pancreatitis Minimal perinephric stranding, consider urinary tract infection Significant thickening of the anterior urinary bladder wall with pericystic inflammatory change most consistent with prominent cystitis
--- NOTE | 2024-10-28 12:16 | EKG_ITS ---
[facility] Test Date: 2024-10-28 Pat Name: AZAEL OCHOA Department: Room: - Gender: Male Rating Specialist: : 1970 Requested By: Joesph Zamora Order Number: [id number] Reading MD: Joesph Zamora Measurements Intervals [place] Rate: 66 P: 33 IA: 173 QRS: 11 QRSD: 93 T: 55 QT: 373 QTc: 394 Interpretive Statements SINUS RHYTHM Compared to ECG 04/30/2024 08:01:09 No significant changes /store/S0/[id number]/[id number].pdf
[2024-10-28 12:33] LABS: Collection Type, Urine Clean Catch
[2024-10-28 12:57] LABS: Basophils # (Auto) 0.1 Thou/mm3 (0.0-0.2); Basophils % (Auto) 1 % (0-2.5); Eosinophils # (Auto) 1.1 Thou/mm3 (0.0-0.5); Eosinophils % (Auto) 18 % (0-10); Hematocrit 35.2 % (41.0-53.0); Hemoglobin 12.6 g/dL (13.5-16.0); Immature Granulocytes % (Auto) 0 % (0-0); Immature Granulocytes Auto 0.02 Thou/mm3 (0.00-0.00); Lymphocytes # (Auto) 1.6 Thou/mm3 (1.0-4.8); Lymphocytes % (Auto) 26 % (10-50); Mean Corpuscular HGB Conc 35.8 g/dl (31.0-37.0); Mean Corpuscular Hemoglobin 30.1 pg (25.0-35.0); Mean Corpuscular Volume 84 fL (80-100); Monocytes # (Auto) 0.4 Thou/mm3 (0.0-0.8); Monocytes % (Auto) 7 % (0-12); Neutrophils % (Auto) 48 % (37-80); Nucleated Red Blood Cell % 0 /100 WBC (0); Platelet Count 195 Thou/mm3 (140-440); RDW Standard Deviation 37.8 fL (35.1-43.9); Red Blood Count 4.19 Miln/mm3 (4.50-5.90); White Blood Count 6.1 Thou/mm3 (3.8-10.6)
--- NOTE | 2024-10-28 13:06 | PC.NURSE ---
human resources technician could not find pt.
--- NOTE | 2024-10-28 13:06 | PC.NURSE ---
alarm field technician found pt.
[2024-10-28 13:07] LABS: Prothrombin Time 10.6 Seconds (9.0-12.2)
[2024-10-28 13:07] LABS: Bilirubin,Urine Negative (Negative); Blood,Urine Negative (Negative); Clarity,Urine Clear (Clear/Hazy); Color,Urine Lt-Yellow (Lt Yel-Yel); Glucose, Urine 3+ (Negative); Ketones,Urine Negative (Negative); Leukocyte Esterase,Urine Negative (Negative); Nitrite,Urine Negative (Negative); Protein,Urine Negative (Neg - Trace); RBC,Urine 2 /hpf (0-3); Specific Gravity,Urine 1.019 (1.001-1.035); Squamous Epithelial Cell,Urine < 1 /hpf (0-5); Urobilinogen,Urine Negative mg/dL (0.0-1.0); WBC,Urine 2 /hpf (0-5)
[2024-10-28 13:22] LABS: Alanine Aminotransferase 11 U/L (10-49); Albumin, Serum 4.2 gm/dL (3.5-5.0); Albumin/Globulin Ratio 1.8 (1.2-2.2); Alkaline Phosphatase 70 U/L (46-116); Anion Gap 9 (7-16); Aspartate Amino Transferase 14 U/L (0-34); BUN/Creatinine Ratio 19 Ratio (12-20); Bilirubin,Total 0.8 mg/dL (0.3-1.2); Blood Urea Nitrogen 19 mg/dL (9-23); Calcium 8.5 mg/dL (8.3-10.6); Calcium (Corrected) 8.5 mg/dL (8.5-10.1); Carbon Dioxide 25.4 mMol/L (20.0-31.0); Chloride 104 mMol/L (98-107); Estimated Creatinine Clearance 85.2 mL/min (>60); Globulin 2.3 gm/dL (2.3-3.5); Glucose 194 mg/dL (74-106); Lipase 28 U/L (12-53); Magnesium 1.8 mg/dL (1.6-2.6); Osmolality,Calculated 282 (275-295); Potassium 4.7 mMol/L (3.4-5.1); Sodium 138 mMol/L (136-145); Total Protein 6.5 gm/dL (5.7-8.2); eGFR > 60 See Note
[2024-10-28] MEDS: KETOROLAC INJ 60 MG/2 ML VIAL 30 MG IM (13:38)
== END 2024-10-28 14:42 | disposition home or self-care (01) ==
PROVIDERS: Emergency Provider Family Medicine; PCP Nurse Practitioner Family
DX: R10.11 Right upper quadrant pain (principal); E11.9 Type 2 diabetes mellitus without complications
CPT/HCPCS: 36415; 74176; 80053; 81001; 83690; 83735; 85025; 85610; 93005; 96372; 99284; J1885

== ENCOUNTER 2025-03-27 23:07 | Emergency (ER) | payer MEDICAID, SELFPAY ==
[2025-03-27 23:08] VITALS: BMI 29.7
--- NOTE | 2025-03-27 23:15 | XR_ITS ---
EXAMINATION: PA lateral chest 2 views TECHNIQUE: Upright PA lateral chest 2 views Date and time: March 27, 2025, 1122 hours INDICATIONS: Coughing 15 days. FINDINGS: Early pneumonia posterobasal segment left lower lobe Right lung clear Normal heart size IMPRESSION: Early pneumonia left base
[2025-03-27 23:40] VITALS: BP 113/73; PULSE 95; RESP 18; TEMP 36.8; O2SAT 95
--- NOTE | 2025-03-27 23:54 | EDNOTE_ITS ---
Upper Respiratory Inf. RME/HPI General Chief Complaint: Flu Like Symptoms Stated Complaint: COUGH Time Seen by Provider: 03/27/25 23:32 Arrival date/time: 03/27/25 23:07 55M with history of DM presents to ED with daughter for 1 week of cough and sore throat. Limitations: no limitations Related Data Home Medications ?Medication ?Instructions ?Recorded ?Confirmed finasteride 5 mg tablet 5 mg PO QDAY 04/30/24 insulin glargine 100 unit/mL 25 unit subcut QPM 04/30/24 subcutaneous solution (Lantus U-100 Insulin) lisinopril 10 mg tablet 10 mg PO QDAY 04/30/2405/01 tamsulosin 0.4 mg capsule 0.4 mg PO BID 04/30/2404/30 Previous Rx's ?Medication ?Instructions ?Recorded ciprofloxacin HCl 500 mg tablet 500 mg PO BID #14 tabs 05/01/24 (Cipro) hydrocodone 5 mg-acetaminophen 325 1 tab PO Q6H PRN pa in #30 tabs 05/01/24 mg tablet acetaminophen 500 mg capsule 500 mg PO Q6H PRN pain #3 0 caps 07/02/24 ibuprofen 600 mg tablet 600 mg PO Q8H PRN pain #20 t abs 07/02/24 amoxicillin 875 mg tablet 875 mg PO TID 5 days #15 tab s 03/28/25 azithromycin 250 mg tablet See Rx Instructions PO .COM PLEX #6 03/28/25 tabs Allergies Allergy/AdvReac Type Severity Reaction Status Date / Time No Known Allergies Allergy Verified 03/27/25 23:12 Review of Systems Review of Systems Systems Reviewed: All systems reviewed, normal except as documented ENT Ears, Nose, Mouth, and Throat: Reports as per HPI and Reports sore throat Respiratory Respiratory: Reports as per HPI and Reports cough Past Medical History Past Medical History NEUROLOGIC: Negative Neurological Disorders or Seizures CARDIAC: Positive Cardiac Disorders, Hypercholesterolemia (NO MEDS) and Hypert ension; Negative Congestive Heart Failure RESPIRATORY: Negative Chronic Obstructive Pulmonary Disease (COPD) or Asthma GASTROINTESTINAL: Positive Gastrointestinal Disorders, Hepatitis (A- SEVERAL YEA RS AGO) and Gall Bladder Disease GENITOURINARY: Positive Genitourinary Disorders and Benign Prostatic Hyperplasia; Negative Renal Disease MUSCULOSKELETAL: Negative Musculoskeletal Disorders ENDOCRINE: Positive Endocrine Disorders and Diabetes Mellitus Type 2; Negative Diabetes Mellitus Type 1 HEMATOLOGIC: Negative Blood Disorders or Sickle Cell Disease OTHER HISTORY: Positive Chicken Pox; Negative Falls, Blood Transfusions, Blood Transfusion Reaction, Anesthesia Reactions, Chemotherapy, Measles, Mumps or Cancer Family History FAMILY HISTORY: Positive Family Cardiac Disorders (MOTHER- HTN); Negative Family Anesthesia Reaction Surgical History SURGICAL: Positive Eye Surgery (RIGHTEYE- PTYREGIUM) Social History SMOKING STATUS: Former smoker SUBSTANCE USE: does not use ED Exam General Limitations: Present no limitations General appearance: Present alert and in no apparent distress Head Head exam: Present atraumatic ENT ENT exam: Present normal exam, normal oropharynx and mucous membranes moist Neck Neck exam: Present normal inspection, full ROM and trachea midline Chest Chest inspection: Present normal inspection and symmetric chest wall rise Respiratory Respiratory exam: Present normal lung sounds bilaterally Neurological Exam Neurological exam: Present alert and oriented X3 Psychiatric Psychiatric exam: Present normal affect and normal mood Skin Skin exam: Present warm, dry, intact and normal color Course Quality Measures none Orders Category Date Time Status Bedside COVID-19 Antigen Test NOW Care 03/27/25 23:48 Active XR chest 2V Stat Exams 03/27/25 23:15 Completed Vital Signs Vital signs: Vital Signs Temperature 98.2 F 03/27/25 23:40 Pulse Rate 95 03/27/25 23:40 Respiratory Rate 18 03/27/25 23:40 Blood Pressure 113/73 03/27/25 23:40 Pulse Oximetry (%) 95 03/27/25 23:40 Oxygen Delivery Method Room Air 03/27/25 23:40 O2 at 95% on RA and WNLs Upper Respiratory Infection MDM Narrative MDM Narrative:: 55M with history of DM presents to ED with daughter for 1 week of cough and sore throat. Physical exam reveals clear lungs and oropharynx, as well as normal WOB. Patient is afebrile, calm, and alert. Swabs neg. CXR early PNA. Meds and counseling services director given. Patient data External records reviewed:: [facility] previous records Clinical information provided by:: patient Social determinants that could affect healthcare access:: none Patient has the following chronic illnesses:: DM How is presenting disease/condition affected by chronic disease/condition?: exacerbated by Evaluation data The following diagnostics were reviewed and interpreted by me:: lab results and radiology exam(s) Lab and/or radiology exams considered but not ordered:: ordered Interpretation Summary: above Medications / Prescriptions Medications or Prescriptions considered but not ordered:: not ordered Medication administrations:: n/a Consultations Consultation(s) initiated? (list below): No Diagnosis Upper Respiratory Differential Diagnosis: upper respiratory infection, croup, otitis media, sinusitis, viral infection, bronchitis, influenza, pharyngitis and other (CAP) Most likely diagnosis given after review of the tests above:: CAP Admission Indicated Admission indicated?: not indicated Admission Request Was there a request for admission?: No Disposition Plan Disposition Plan: Discharge Discharge Attestation Discharge Attestation: The patient and all family members were given an opportunity to ask questions and understood the discharge instructions. Discharge instructions specifically effects, indications for sooner follow up or return to the emergency department, and the expected course of current diagnosis. Patient condition: Stable Discharge Plan Plan Patient Disposition: HOME (Self Care) Discharge Disposition comment: Stable Prescriptions/Referrals Prescriptions/Med Rec: New amoxicillin 875 mg tablet 875 mg PO TID 5 Days Qty: 15 0RF azithromycin 250 mg tablet See Rx Instructions .ROUTE .COMPLEX Qty: 6 0RF Rx Instructions: For 250 mg dose pack: take 500 mg today (day 1), then 250 mg for 4 days (days 2-5) No Action insulin glargine [Lantus U-100 Insulin] 100 unit/mL Solution 25 unit SUBCUT QPM tamsulosin 0.4 mg Capsule 0.4 mg PO BID lisinopril 10 mg Tablet 10 mg PO QDAY finasteride 5 mg Tablet 5 mg PO QDAY hydrocodone-acetaminophen 5-325 mg tablet 1 tab PO Q6H MDD 4 PRN (Reason: pain) Qty: 30 0RF ciprofloxacin HCl [Cipro] 500 mg tablet 500 mg PO BID Qty: 14 0RF acetaminophen 500 mg capsule 500 mg PO Q6H PRN (Reason: pain) Qty: 30 0RF ibuprofen 600 mg tablet 600 mg PO Q8H PRN (Reason: pain) Qty: 20 0RF Referrals: Chano Conner MD [Primary Care Provider, Family Practice] - In 1 week Problem List Clinical Impression: CAP (community acquired pneumonia) Patient/Caregiver Discharge Instructions Education Materials: ED Pneumonia (Adult) Additional Instructions: Please follow-up with PCP within 24-48 hours and return immediately if symptoms worsen. Ibuprofen/Tylenol can be used simultaneously for greater fever/pain control. Benadryl is good for cough, congestion, and sleep. Keep hydrated. Advance diet as tolerated. Print Language: Ugandan Stand Alone Forms: Patient Portal Info Letter PA/DIRECTOR PROFESSIONAL SERVICES Supervising Physician PA/DIRECTOR PROFESSIONAL SERVICES Supervising Physician: Dr. Edouard
== END 2025-03-28 00:28 | disposition home or self-care (01) ==
PROVIDERS: Emergency Provider Emergency Medicine; PCP Family Medicine
DX: J18.9 Pneumonia, unspecified organism (principal); E11.9 Type 2 diabetes mellitus without complications
CPT/HCPCS: 71046; 99285